=== PATIENT | female | born 1950 | race Caucasian/White ===

== ENCOUNTER 2020-01-04 20:42 | Emergency (ER) | payer BC ==
[~2020-01-04] VITALS: Ht 172.7 cm; Wt 70.3 kg
--- NOTE | 2020-01-04 20:45 | NUR ---
PATIENT CAME TO ER BED BIBRA C/O DRINKING AND TAKING XANAX AFTER AN ARGUMENT WITH , PER RA REPORT. PATIENT STATES DENIES SUICIDAL IDEATION. PATIENT STATES "I AM HUNGRY AND I NEED FOOD" PATIENT IS AAOX4. NO SOB. BREATHING EVENLY AND UNLABORED ON ROOM AIR. CONNECTED TO MONITOR.
--- NOTE | 2020-01-04 21:45 | NUR ---
BLOOD DRAWN AND SENT TO LAB.
[2020-01-04 21:58] LABS: BASOPHILS # (AUTO) 0.1 /CMM (0.0-0.2); BASOPHILS % (AUTO) 1.1 % (0.0-2.0); HEMATOCRIT 40 % (33-45); HEMOGLOBIN 13.5 g/dL (11.5-14.8); LYMPHOCYTES % (AUTO) 35.3 % (20.0-44.0); MEAN CORPUSCULAR HGB CONC 34 g/dl (31.0-36.0); MEAN CORPUSCULAR VOLUME 97 fL (82-100); MONOCYTES # (AUTO) 0.4 /CMM (0.1-1.30); MONOCYTES % (AUTO) 7.5 % (2.0-12.0); NEUTROPHILS % (AUTO) 53.1 % (43.0-81.0); PLATELET COUNT (AUTO) 245 /CMM (150-450); RED BLOOD CELL COUNT(AUTO) 4.14 MIL/uL (4.0-5.2); WHITE BLOOD COUNT (AUTO) 5.6 K/uL (4.3-11.0)
[2020-01-04 22:04] LABS: CALCIUM, SERUM 8.4 mg/dL (8.5-10.1); CREATININE 0.7 mg/dL (0.6-1.3); POTASSIUM 3.6 mmol/L (3.5-5.1)
[2020-01-04 22:18] LABS: ALBUMIN 3.7 g/dL (3.4-5.0); BILIRUBIN,TOTAL 0.2 mg/dL (0.2-1.0); TOTAL PROTEIN, SERUM 6.6 g/dL (6.4-8.2)
[2020-01-04 22:19] LABS: SALICYLATE 0.7 mg/dL (2.8-20.0)
--- NOTE | 2020-01-04 22:28 | NUR ---
URINE COLLECTED AND SENT TO LAB.
[2020-01-04 22:44] LABS: APPEARANCE,URINE Clear (CLEAR); BILIRUBIN,URINE Negative (NEGATIVE); BLOOD, URINE Trace-lysed Ery/uL (NEGATIVE); COLOR,URINE Yellow (YELLOW); KETONES,URINE Negative (NEGATIVE); LEUKOCYTE ESTERASE ,URINE Negative (NEGATIVE); NITRITE, URINE Negative (NEGATIVE); PH,URINE 5.5 (5.0-8.0); PROTEIN,URINE Negative (NEGATIVE); UGLUCOSE Negative (NEGATIVE); UROBILINOGEN,URINE 0.2 EU/dL (0.2)
[2020-01-04 23:43] LABS: BACTERIA,URINE Few /HPF (None Seen); WBC,URINE 0-2 /HPF (0-3)
[2020-01-04 23:44] LABS: SQUAMOUS EPITHELIAL CELL,UR Few /HPF (None Seen)
[2020-01-05 00:10] VITALS: BP 118/72
--- NOTE | 2020-01-05 00:10 | NUR ---
Patient discharged to home in stable condition. Written and verbal after care instructions given. Patient verbalizes understanding of instruction.
== END 2020-01-05 00:11 | disposition home or self-care (01) ==
LOC: ER 20:44
DX: T42.4X1A Poisoning by benzodiazepines, accidental (unintentional), initial encounter (principal); F10.129 Alcohol abuse with intoxication, unspecified; Y90.5 Blood alcohol level of 100-119 mg/100 ml; Y92.89 Other specified places as the place of occurrence of the external cause
CPT/HCPCS: 36415; 80048; 80076; 80305; 80307; 80329; 81001; 85025; 99283; G0480; 81000-TC